=== PATIENT | male | born 1960 | race Caucasian/White ===

== ENCOUNTER 2018-08-21 17:50 | Inpatient (IN) | payer BC, OTHER ==
[~2018-08-21] VITALS: Ht 180.3 cm; Wt 95.6 kg
[~2018-08-21 17:50] MED LIST: heparin 10,000 units/1 ML INJ ONE; heparin, porcine-25,000 units/250ml premix IV ONE; nitroGLYCERIN 0.4mg SUBLingual tab SL ONE; nitroGLYCERIN in D5W 50mg/250ml (Tridil) infusion IV ONE
--- NOTE | 2018-08-21 17:55 | NUR ---
Received VO from Dr Allison, pt to receive nitro subling x 2 q 5 as pt received 1st dose from EMS 1758: pt received nitro 0.4mg subling 1803: BP 156/81, HR 100 rates CP 01/11, pt received 2nd dose of nitro sublingual
[2018-08-21 18:13] LABS: BASOPHILS # (AUTO) 0.1 X10'3 (0-0.2); BASOPHILS % (AUTO) 0.8 % (0-1); EOSINOPHILS # (AUTO) 0.2 X10'3 (0-0.9); EOSINOPHILS % (AUTO) 2.6 % (0-6); HEMATOCRIT 43.7 % (42.0-52.0); HEMOGLOBIN 14.7 g/dl (14.0-17.9); LYMPHOCYTES # (AUTO) 3.8 X10'3 (1.1-4.8); LYMPHOCYTES % (AUTO) 41.9 % (21-51); MEAN CORPUSCULAR HEMOGLOBIN 31.8 PG (27.0-31.0); MEAN CORPUSCULAR HGB CONC 33.6 g/dL (33.0-36.5); MEAN CORPUSCULAR VOLUME 94.7 FL (78-98); MEAN PLATELET VOLUME 7.8 FL (7.4-10.4); MONOCYTES # (AUTO) 0.8 X10'3 (0-0.9); MONOCYTES % (AUTO) 8.9 % (2-12); NEUTROPHILS # (AUTO) 4.1 X10'3 (1.8-7.7); NEUTROPHILS % (AUTO) 45.8 % (42-75); PLATELET COUNT 384 X10'3 (140-440); RED BLOOD COUNT 4.61 X10'6 (4.70-6.10); RED CELL DISTRIBUTION WIDTH 12.2 % (11.5-14.5)
--- NOTE | 2018-08-21 18:13 | NUR ---
Nitro bolus of 4,000 units administered, dosing checked at [facility] with 2nd RN Gustavo Pearson. 1812: Nitro gtt started at 1,000 units/hr, dosing done with 2nd RN at [facility] Khris Lara RN.
[2018-08-21] MEDS ORDERED: LORazepam 2 mg/ml vial IV ONE (18:20)
--- NOTE | 2018-08-21 18:20 | NUR ---
Spoke with Dr. Allison, Nitro gtt not to be started at present time per MD, heparin gtt to continue.
[2018-08-21 18:22] LABS: ALANINE AMINOTRANSFERASE 60 U/L (12-78); ALBUMIN 4.1 G/DL (3.4-5.0); ALBUMIN/GLOBULIN RATIO 1.2 (1.1-1.5); ALKALINE PHOSPHATASE 111 IU/L (46-116); ANION GAP 13 (8-16); ASPARTATE AMINO TRANSFERASE 24 U/L (10-37); BILIRUBIN,TOTAL 0.7 MG/DL (0.1-1.0); BLOOD UREA NITROGEN 12 MG/DL (7-18); BUN/CREATININE RATIO 11.9 (5.4-32.0); CALCIUM 8.8 MG/DL (8.5-10.1); CHLORIDE 101 MMOL/L (99-107); CREATININE 1.01 MG/DL (0.60-1.10); GLUCOSE 271 MG/DL (70-104); POTASSIUM 3.8 MMOL/L (3.5-5.1); SODIUM 137 MMOL/L (135-145); TOTAL CARBON DIOXIDE 22.7 MMOL/L (24-32); TOTAL PROTEIN 7.4 G/DL (6.4-8.2); eGFR 76 ML/MIN
[2018-08-21 18:23] LABS: PARTIAL THROMBOPLASTIN TIME 25 SECONDS (22-32)
[2018-08-21] MEDS ORDERED: nitroGLYCERIN 0.4mg SUBLingual tab SL PRN ×2 (18:25→21:35)
[2018-08-21] MEDS ORDERED: heparin 10,000 units/1 ML INJ IV ONE ×3 (18:25→21:20)
[2018-08-21] MEDS ORDERED: heparin 1,000unit/ml 10ml vial 10 ML ONE (18:27)
[2018-08-21] MEDS ORDERED: LIDOcaine 1% (10mg/ml)w/preservative injection 20ml MDV ONE (18:27)
[2018-08-21] MEDS ORDERED: iohexol 350 MG/ML 50ML vial IV ONE (18:27)
[2018-08-21] MEDS ORDERED: iohexol 350 MG/1 ML 200ml bottle ONE (18:27)
[2018-08-21 18:29] LABS: MAGNESIUM 1.9 MG/DL (1.5-2.4)
[2018-08-21] MEDS: heparin 25,000 UNIT/250ml bag 250 ML IV SCH (18:29)
--- NOTE | 2018-08-21 18:36 | NUR ---
DR ROSADO AT BEDSIDE.
[2018-08-21] MEDS ORDERED: midazolam 2 mg/2 ml injection ONE (18:45)
[2018-08-21] MEDS ORDERED: fentaNYL/PF 50MCG/1 ML 2ML syringe ONE (18:46)
--- NOTE | 2018-08-21 18:52 | NUR ---
TOOK PT TO COMPARATOR OPERATOR WITH COMPARATOR OPERATOR RN.
[2018-08-21] MEDS ORDERED: tirofiban 5mg in NS 100mL 100 ML IV ONE ×2 (19:01→19:54)
--- NOTE | 2018-08-21 19:52 | NUR ---
Received report from Colin HWANG in pathology laboratory aides teacher and had the opportunity to ask questions. Pt will be admitted to room 2044, will assume care upon arrival to unit.
--- NOTE | 2018-08-21 19:59 | NUR ---
Patient arrived from slab conditioner supervisor accompanied by Colin HWANG. Pt is alert and orientated x4. Pt on 4LNC with spo2 at 100%, Aggrastat gtt, Heparin gtt and NS infusing via PIV, right femoral sheath in place no s/s of bleeding or hematoma. pt c/o pain 1-2/10 to left chest, and 3/10 to right hip at sheath insertion site. All monitoring alarms audible. See interventions for further information. Will continue to monitor.
[2018-08-21 20:00] VITALS: BP 146/82
[2018-08-21 21:00] VITALS: BP 158/80
[2018-08-21] MEDS ORDERED: atorvastatin 20mg tablet PO SCH (21:00)
[2018-08-21] MEDS ORDERED: heparin 10,000 units/1 ML INJ IV PRN (21:20)
[2018-08-21] MEDS ORDERED: heparin 25,000 UNIT/250ml bag 250 ML IV SCH (21:20)
[2018-08-21] MEDS ORDERED: CLOPIDOGREL BISULFATE 300MG TAB PO ONE (21:30)
[2018-08-21] MEDS ORDERED: magnesium hydroxide 30ml (MOM) UD suspension PO PRN (21:35)
[2018-08-21] MEDS ORDERED: morphine 10mg/ml inj. IV PRN (21:35)
[2018-08-21] MEDS ORDERED: proCHLORperazine 10 MG/2 ml inj IV PRN (21:35)
[2018-08-21] MEDS ORDERED: cyclobenzaprine 10mg tablet PO PRN (21:35)
[2018-08-21] MEDS ORDERED: acetaminophen 325mg tablet PO PRN (21:35)
[2018-08-21] MEDS ORDERED: OXAZEpam 15mg capsule PO PRN (21:35)
[2018-08-21] MEDS ORDERED: morphine 4 MG/ML inj SYRINge IV PRN (21:35)
[2018-08-21] MEDS ORDERED: HYDROcodone/acetaminophen 10/325mg tab PO PRN ×2 (21:35)
[2018-08-21 22:00] VITALS: BP 146/82
--- NOTE | 2018-08-21 22:00 | NUR ---
Pt on the phone with Isak.
[2018-08-21] MEDS: lisinopril 20mg tablet PO SCH (22:06)
[2018-08-21] MEDS: metoprolol tartrate 25mg tablet PO SCH (22:06)
[2018-08-21] MEDS: atorvastatin 20mg tablet PO SCH (22:06)
[2018-08-21] MEDS: tirofiban 5mg in NS 100mL 100 ML IV SCH (22:11)
[2018-08-21] MEDS: normal saline 1000ml 1,000 ML IV SCH (22:13)
[2018-08-21 23:00] VITALS: BP 136/80
[2018-08-22] VITALS (20 sets, daily range): BP systolic 102–152; BP diastolic 60–93
[2018-08-22] MEDS: heparin 25,000 UNIT/250ml bag 250 ML IV SCH (01:16)
[2018-08-22] MEDS: tirofiban 5mg in NS 100mL 100 ML IV SCH ×2 (02:06→07:57)
[2018-08-22] MEDS ORDERED: SIMV40TA PO (02:18)
[2018-08-22] MEDS ORDERED: METF-438 PO (02:18)
[2018-08-22] MEDS ORDERED: ASPI-611 PO (02:18)
[2018-08-22] MEDS ORDERED: LISI30TA4 PO (02:18)
[2018-08-22 04:41] LABS: BASOPHILS % (AUTO) 0.4 % (0-1); EOSINOPHILS # (AUTO) 0.1 X10'3 (0-0.9); EOSINOPHILS % (AUTO) 1.2 % (0-6); HEMATOCRIT 40.3 % (42.0-52.0); HEMOGLOBIN 13.6 g/dl (14.0-17.9); LYMPHOCYTES # (AUTO) 2.2 X10'3 (1.1-4.8); LYMPHOCYTES % (AUTO) 22.9 % (21-51); MEAN CORPUSCULAR HGB CONC 33.7 g/dL (33.0-36.5); MEAN CORPUSCULAR VOLUME 94.7 FL (78-98); MEAN PLATELET VOLUME 7.9 FL (7.4-10.4); MONOCYTES # (AUTO) 0.8 X10'3 (0-0.9); MONOCYTES % (AUTO) 8.1 % (2-12); NEUTROPHILS # (AUTO) 6.3 X10'3 (1.8-7.7); NEUTROPHILS % (AUTO) 67.4 % (42-75); PLATELET COUNT 371 X10'3 (140-440); RED BLOOD COUNT 4.25 X10'6 (4.70-6.10); RED CELL DISTRIBUTION WIDTH 12.3 % (11.5-14.5); WHITE BLOOD COUNT 9.4 X10'3 (4.5-11.0)
[2018-08-22 04:52] LABS: ALBUMIN 3.5 G/DL (3.4-5.0); ANION GAP 11 (8-16); BLOOD UREA NITROGEN 10 MG/DL (7-18); BUN/CREATININE RATIO 12.2 (5.4-32.0); CALCIUM 8.4 MG/DL (8.5-10.1); CHLORIDE 104 MMOL/L (99-107); CHOL/HDL RATIO 4.2 (0.00-4.99); CHOLESTEROL 125 MG/DL (0-200); CREATININE 0.82 MG/DL (0.60-1.10); GLUCOSE 220 MG/DL (70-104); HDL CHOLESTEROL 30 MG/DL (35-60); LDL CHOLESTEROL 79 MG/DL (50-100); SODIUM 137 MMOL/L (135-145); TOTAL CARBON DIOXIDE 22.5 MMOL/L (24-32); TRIGLYCERIDES 156 MG/DL (20-135); eGFR > 90 ML/MIN
[2018-08-22 04:54] LABS: TROPONIN I 11.92 NG/ML (0.0-0.05)
[2018-08-22] MEDS: normal saline 1000ml 1,000 ML IV SCH ×2 (05:16→18:00)
--- NOTE | 2018-08-22 06:39 | NUR ---
Problems reprioritized. Patient report given, questions answered & plan of care reviewed with Brian HWANG.
--- NOTE | 2018-08-22 06:39 | NUR ---
I have reviewed and agree with all medications administered and interventions performed by Kamala HWANG.
[2018-08-22] MEDS: clopidogrel 75mg tablet PO SCH (07:55)
[2018-08-22] MEDS: metoprolol tartrate 25mg tablet PO SCH ×2 (07:55→19:30)
[2018-08-22] MEDS: aspirin 81mg tab.chew PO SCH (07:55)
[2018-08-22] MEDS: docusate sod 100mg capsule PO SCH ×2 (07:55→19:30)
[2018-08-22] MEDS ORDERED: LISI-600 PO (09:33)
[2018-08-22] MEDS ORDERED: METF1000 PO (09:33)
[2018-08-22] MEDS ORDERED: LORazepam 2 mg/ml vial IV STA (09:37)
[2018-08-22] MEDS ORDERED: midazolam 2 mg/2 ml injection ONE (09:50)
[2018-08-22] MEDS ORDERED: LIDOcaine 1% (10mg/ml)w/preservative injection 20ml MDV ONE (09:50)
[2018-08-22] MEDS ORDERED: iohexol 350MG/ML 100ml bottle IV ONE (09:50)
[2018-08-22] MEDS ORDERED: fentaNYL/PF 50MCG/1 ML 2ML syringe ONE (09:50)
--- NOTE | 2018-08-22 10:02 | NUR ---
Pt transported by Colin, industrial laborer RN and another industrial laborer RN via ICU bed on ICU's portable telemetry to industrial laborer with friends at . Consent was completed by Colin at this time and questions were encouraged and answered by all parties present. There are no issues to report at this time.
--- NOTE | 2018-08-22 11:00 | NUR ---
Returns from animal laboratory helper accompanied by Colin and other animal laboratory helper RN on ICU bed connected to ICU telemetry. Pt denied any complaints at this time.
--- NOTE | 2018-08-22 12:37 | NUR ---
DM Consult: A1C 8.1. Pt admit w/ STEMI s/p cath hx T2DM and returned to cath lab technologist again per RN. Per RN MD TOLBERT Kawasaki disease. LBM 08/21 w/ PO pending s/p cath lab technologist. GLU 220 will need to start hyperglycemic protocol post-cath. Will need DM ed once clinically stable prior to d/c. Rec: 1. continue carb controlled diet 2. monitor for ONS needs 3. hyperglycemic protocol given GLU 220 4. wt per rx Addendum: 08/22/18 at [address] Amended: Links added.
--- NOTE | 2018-08-22 18:25 | NUR ---
Problems reprioritized. Patient report given, questions answered & plan of care reviewed with Jannie Downing RN.
--- NOTE | 2018-08-22 18:35 | NUR ---
Patient in room ICU 2044. I have received report from Maycol HWANG and had the opportunity to ask questions and assume patient care. Right groin puncture site clean, dry and intact with no hematoma noted, patient tolerating diet well.
--- NOTE | 2018-08-22 19:14 | NUR ---
Patient in room ICU 2044. I have received report from brain rn and had the opportunity to ask questions and assume patient care.
[2018-08-22] MEDS ORDERED: MESSAGE TO PHARMACY PO ONE (19:15)
[2018-08-22] MEDS ORDERED: dextrose ORAL solution 15 GM/59 ML bottle PO PRN ×2 (19:15)
[2018-08-22] MEDS ORDERED: dextrose 50%-water 50ml dispensing syringe IV PRN ×2 (19:15)
[2018-08-22] MEDS ORDERED: glucagon, human recombinant 1mg kit SUBCUT PRN (19:15)
[2018-08-22] MEDS ORDERED: insulin Lispro (HumaLOG) vial - multi-dose SQ SCH (19:15)
[2018-08-22] MEDS: lisinopril 20mg tablet PO SCH (19:30)
--- NOTE | 2018-08-22 19:30 | NUR ---
Report called to receiving nurse Ju HWANG. Transferred via Wheel chair with all Belongings. Patient ambulated well with steady gait, Right groin remains clean, dry and intact with no Hematoma notee Special Issues communicated to receiving nurse.
--- NOTE | 2018-08-22 20:00 | NUR ---
PATIENT ARRIVED TO FLOOR VIA W/C AND AMBULATED TO HOSPITAL BED. PATIENT ALERT AND ORIENTED IN NO DISTRESS. TELE MONITOR ALREADY ON PATIENT. V/S AND ASSESSMENT COMPLETED. PATIENT ORIENTED TO ROOM NURSE AND EVENTS ON PCU FOR THE NIGHT. CL IN REACH. PATIENT INSTRUCTED TO URINATE IN URINAL IN BATHROOM SO NURSE COULD MEASURE I/O'S. VISITOR AT BEDSIDE.
[2018-08-22] MEDS: atorvastatin 20mg tablet PO SCH (20:53)
[2018-08-22] MEDS ORDERED: insulin glargine (Lantus) pen - multi-dose SQ SCH (21:00)
[2018-08-23 03:00] VITALS: BP 118/74
[2018-08-23 05:45] LABS: BASOPHILS % (AUTO) 0.6 % (0-1); EOSINOPHILS # (AUTO) 0.1 X10'3 (0-0.9); EOSINOPHILS % (AUTO) 2.1 % (0-6); HEMATOCRIT 41.9 % (42.0-52.0); HEMOGLOBIN 13.9 g/dl (14.0-17.9); LYMPHOCYTES # (AUTO) 2.1 X10'3 (1.1-4.8); LYMPHOCYTES % (AUTO) 31.5 % (21-51); MEAN CORPUSCULAR HEMOGLOBIN 31.5 PG (27.0-31.0); MEAN CORPUSCULAR HGB CONC 33.1 g/dL (33.0-36.5); MEAN CORPUSCULAR VOLUME 95.2 FL (78-98); MONOCYTES # (AUTO) 0.8 X10'3 (0-0.9); MONOCYTES % (AUTO) 11.7 % (2-12); NEUTROPHILS # (AUTO) 3.8 X10'3 (1.8-7.7); NEUTROPHILS % (AUTO) 54.1 % (42-75); PLATELET COUNT 330 X10'3 (140-440); RED CELL DISTRIBUTION WIDTH 12.5 % (11.5-14.5); WHITE BLOOD COUNT 6.8 X10'3 (4.5-11.0)
[2018-08-23 06:00] VITALS: BP 121/80
--- NOTE | 2018-08-23 06:20 | NUR ---
Patient in room PCU 3027. I have received report from ERI PAGE, and had the opportunity to ask questions and assume patient care.
--- NOTE | 2018-08-23 06:20 | NUR ---
Problems reprioritized. Patient report given, questions answered & plan of care reviewed with SALOME HWANG. PATIENT AWAKE IN NO DISTRESS. 2 RN SKIN CHECK DONE AND NO SKIN ISSUES OBSERVED. RIGHT GROIN SITE CLEAN DRY AND INTACT NO HEMATOMA.
[2018-08-23] MEDS: docusate sod 100mg capsule PO SCH (08:06)
[2018-08-23] MEDS: metoprolol tartrate 25mg tablet PO SCH (08:07)
[2018-08-23] MEDS: aspirin 81mg tab.chew PO SCH (08:07)
[2018-08-23] MEDS: clopidogrel 75mg tablet PO SCH (08:08)
[2018-08-23 11:00] VITALS: BP 106/75
[2018-08-23] MEDS ORDERED: CLOP75TA35 PO (14:59)
[2018-08-23] MEDS ORDERED: METO25TA6 PO (14:59)
[2018-08-23 15:00] VITALS: BP 81/48
--- NOTE | 2018-08-23 16:00 | NUR ---
Provided patient with discharge instructions as well as new prescription information and discharge packet. Awaiting delivery of medications from Mike's bedside delivery. IV removed, catheter intact with minimal bleeding clean gauze applied and secured with tape. Tele monitor removed and returned to [employer]. patient got dressed on his own, and denied any further questions or concerns. verbalized understanding to follow up with primary care provider and to take medications as directed.
== END 2018-08-23 17:05 | disposition home or self-care (01) | DRG 282 ==
LOC: ER 17:50 → ICU 2S 20:20 → PCU 3S 08-22 19:35
PROVIDERS: ADMIT Internal Medicine Cardiovascular Disease; ATTEND Internal Medicine Critical Care Medicine
PROC: 4A023N7 Measurement of Cardiac Sampling and Pressure, Left Heart, Percutaneous Approach (ICD-10-PCS; principal; 2018-08-21)
PROC: B2111ZZ Fluoroscopy of Multiple Coronary Arteries using Low Osmolar Contrast (ICD-10-PCS; 2018-08-21)
PROC: B2151ZZ Fluoroscopy of Left Heart using Low Osmolar Contrast (ICD-10-PCS; 2018-08-21)
PROC: 02JA3ZZ Inspection of Heart, Percutaneous Approach (ICD-10-PCS; 2018-08-21)
DX: I21.19 ST elevation (STEMI) myocardial infarction involving other coronary artery of inferior wall (principal); E11.9 Type 2 diabetes mellitus without complications; E78.00 Pure hypercholesterolemia, unspecified; E78.5 Hyperlipidemia, unspecified; I10 Essential (primary) hypertension; I25.10 Atherosclerotic heart disease of native coronary artery without angina pectoris; Z82.49 Family history of ischemic heart disease and other diseases of the circulatory system; Z87.891 Personal history of nicotine dependence
CPT/HCPCS: 93454; 93458; 96374; 96375; 99285; C9606; 36415; 71045; 80048; 80053; 80061; 82948; 83036; 83735; 83880; 84484; 85025; 85347; 85610; 85730; 87070; 93005; 99152; 99153; A4620; A6257; C1725; C1760; C1769; G0378; J1644; J1815; J2001; J2060; J2250; J3010; J3246; J3490; J7030; Q9967